=== PATIENT | male | born 1980 | race Caucasian/White ===

== ENCOUNTER 2022-10-14 12:18 | Emergency (ER) | payer MEDICAID ==
[~2022-10-14] VITALS: Ht 167.6 cm; Wt 86.2 kg
[2022-10-14 12:29] VITALS: BP 151/91; PULSE 83; RESP 20; TEMP 97.9; O2SAT 99
--- NOTE | 2022-10-14 12:36 | NUR ---
LT ANKLE PAIN, INCREASE WITH WALKING AND PALPATION, HIT LEG ON METAL, NOW SWOLLEN , RED, PA TO EXAMINE
[2022-10-14] MEDS ORDERED: IBUPROFEN 600 MG TAB PO ONE (12:45)
[2022-10-14] MEDS ORDERED: CEPH-588 PO (12:53)
[2022-10-14] MEDS ORDERED: IBUP-2213 PO (12:53)
== END 2022-10-14 13:55 | disposition home or self-care (01) ==
LOC: MED 12:18
DX: L03.116 Cellulitis of left lower limb (principal); Z79.899 Other long term (current) drug therapy
CPT/HCPCS: 99283